=== PATIENT | female | born 1990 | race Caucasian/White ===

== ENCOUNTER 2021-11-30 09:13 | Outpatient (CLI) | payer BC, SELFPAY ==
--- NOTE | ~2021-11-30 | US_ITS ---
EXAMINATION: US OB /maternal detail EXAM DATE: 11/30/2021 10:11 INDICATION: anatomy. 2nd trimester. TECHNIQUE: Pelvic obstetrical transabdominal sonogram was performed by a technologist. There are mu ltiple grayscale and Doppler images available for interpretation. There are no earlier studies of th is gestation for comparison. FINDINGS: There is a single fetus identified in breech presentation with a heart rate of 155 beats pe r minute. The placenta is located in the anterior position, although there is some placental which ap pears to be reaching posteriorly.. Placental margin to internal cervical os distance is 3.4 cm. Cerv ical canal length is 5 cm. There is no sonographic evidence of retroplacental hemorrhage identified . There is subjectively expected amount of amniotic fluid. BIOMETRIC DATA: Biparietal diameter (BPD): 4.5 cm ----------------> 19 weeks 4 days. Head circumference (HC): 17.4 cm ----------------> 19 weeks 6 days. Abdominal circumference (AC): 15.2 cm ----------> 20 weeks 3 days. Femur length (FL): 3.3 cm --------------------------> 20 weeks 3 days. These measurements are concordant. HC/AC ratio is 1.14 (The 5th -- 95th percentile range is 1.07-1.25. Estimated weight is 346 g +/- 52 g. This is the 64th percentile when the currently reported cl inical gestation age 20 weeks 0 days, clinical estimated date of delivery (JOANIE-OPE) 04/19 is used. Fet al estimated gestational age based on measurements from this exam is 20 weeks 1 day, with an estimate d date of delivery (JOANIE-AUA) 04/18. ANATOMIC SURVEY: The following anatomy is identified and is sonographically normal in appearance: Cerebral ventricles Cavum septum pellucidum Cerebellum Cisterna magna Nuchal fold CTL-spine Four-chamber heart Cardiac outflow tracts Diaphragm Stomach Kidneys Bladder Three-vessel cord Cord insertion Extremities Nose/lips IMPRESSION: 1. Single fetus in breech presentation with heart rate 155 beats per minute. 2. Estimated weight of 346 grams, 64th percentile using the currently reported clinical gestat ion age of 20 weeks 0 days, JOANIE(OPE) 04/19. 3. Normal anatomic survey. Reviewed, dictated and finalized at location A. STMENT FUND MANAGER IMPRESSION: 1. Single fetus in breech presentation with heart rate 155 beats per minute. 2. Estimated weight of 346 grams, 64th percentile using the currently re ported clinical gestation age of 20 weeks 0 days, JOANIE(OPE) 04/19. 3. Normal anatomic survey.
== END 2021-11-30 09:14 | disposition home or self-care (01) ==
PROVIDERS: Visit Provider Student in an Organized Health Care Education/Training Program
DX: Z34.92 Encounter for supervision of normal pregnancy, unspecified, second trimester (principal); Z3A.20 20 weeks gestation of pregnancy
CPT/HCPCS: 76805

== ENCOUNTER 2022-04-14 10:03 | Outpatient (RCR) | payer BC, SELFPAY ==
[2022-04-11 14:40] VITALS: BP 116/76; PULSE 99
[2022-04-14 10:54] VITALS: BP 117/75; PULSE 101
== END 2022-05-15 10:48 | disposition home or self-care (01) ==
LOC: ANHOBOP 10:03
PROVIDERS: Visit Provider Student in an Organized Health Care Education/Training Program
DX: O99.891 Other specified diseases and conditions complicating pregnancy (principal); Z3A.38 38 weeks gestation of pregnancy; Z3A.39 39 weeks gestation of pregnancy
CPT/HCPCS: 59025

== ENCOUNTER 2022-04-15 14:44 | Inpatient (IN) | payer BC, SELFPAY ==
[2022-04-15] VITALS (101 sets, daily range): BP systolic 71–176; BP diastolic 40–139; PULSE 77–236; RESP 20; TEMP 36.4–37.4; O2SAT 94–100; BMI 37.6
--- NOTE | ~2022-04-15 | US_ITS ---
EXAMINATION: US venous doppler [facility] DATE: 04/16/2022 14:17 INDICATION: Left calf pain. TECHNIQUE: Grayscale ultrasound images without and with compression and Doppler ultrasound images of the left lower extremity veins were obtained. COMPARISON: None. FINDINGS: The visualized portions of left common femoral vein, profunda (deep) femoral vein, femoral vein, popl iteal vein, peroneal veins, posterior tibial veins, and greater saphenous vein outflow are patent. IMPRESSION: 1. No deep venous thrombosis. Reviewed, dictated and finalized at location B.
[2022-04-15] MEDS: LACTATED RINGERS 1,000 ML 125 ML IV CONT ×2 (15:27→16:30)
[2022-04-15] MEDS: fentaNYL CITRATE INJ (*CRX) 100 MCG/2 ML VIAL 50 MCG IV PUSH (15:33)
[2022-04-15 15:34] LABS: Basophils Absolute Auto 0.1 K/mm3 (0.0-0.1); Basophils Percent Auto 0.4 % (0.2-1.2); Eosinophils Absolute Auto 0.3 K/mm3 (0-0.3); Eosinophils Percent Auto 1.8 % (0-4.4); Hematocrit 36.5 % (37.0-47.0); Hemoglobin 11.6 g/dL (12.0-15.0); Immature Granulocyte Absolute 0.16 K/mm3 (0.00-0.031); Immature Granulocyte Percent A 0.9 % (0-0.5); Lymphocytes Absolute Auto 2.28 K/mm3 (0.9-3.2); Lymphocytes Percent Auto 13.3 % (18.3-44.2); Mean Corpuscular HGB Conc 31.8 g/dl (32-36); Mean Corpuscular Hemoglobin 27.6 pg (26-34); Mean Corpuscular Volume 86.7 fl (80-100); Mean Platelet Volume 10.8 fl (7.4-10.4); Monocytes Absolute Auto 1.4 K/mm3 (0.1-0.6); Monocytes Percent Auto 8.1 % (2.6-8.5); Neutrophils Absolute Auto 12.9 K/mm3 (1.3-6.7); Neutrophils Percent Auto 75.5 % (45.5-73.1); Platelet Count Result 378 k/mm3 (150-375); Red Blood Count 4.21 M/mm3 (4.2-5.4); Red Cell Distribution Width 13.4 % (11.5-14.5); White Blood Count 17.1 K/mm3 (4.5-10.0)
--- NOTE | 2022-04-15 15:41 | P.PNAN_ITS ---
Anes - Initial Pre Proc Eval Procedure: labor epidural Date/Time: 04/15/22 15:41 Surgeon: Rosendo Mccallum MD Pre Op Diagnosis: leaking Patient Data Age: 31 Gender: F Height: Weight: Last Vital Signs Pulse 101 H 04/15/22 15:32 BP 143/87 H 04/15/22 15:32 Allergies Allergy/AdvReac Type Severity Reaction Status Date / Time erythromycin base Allergy Verified 11/10/12 10:53 Home Medications Medication Instructions Recorded Confirmed Type ondansetron HCl 4 mg tablet 4 mg PO Q8H 03/22/22 03/22/22 History vit no.95-ferrous 1 tablet PO DAILY 03/22/22 03/22/22 History fumarate 28 mg-folic acid 800 mcg tablet () Laboratory Tests 04/15/22 04/15/22 15:28 15:28 WBC 17.1 K/mm3 H K/mm3 (4.5-10.0) RBC 4.21 M/mm3 M/mm3 (4.2-5.4) Hgb 11.6 g/dL L g/dL (12.0-15.0) Hct 36.5 % L % (37.0-47.0) MCV 86.7 fl fl (80-100) MCH 27.6 pg pg (26-34) MCHC 31.8 g/dl L g/dl (32-36) RDW 13.4 % % (11.5-14.5) Plt Count 378 k/mm3 H k/mm3 (150-375) MPV 10.8 fl H fl (7.4-10.4) Immature Gran % (Auto) 0.9 % H % (0-0.5) Neut % (Auto) 75.5 % H % (45.5-73.1) Lymph % (Auto) 13.3 % L % (18.3-44.2) [place] % (Auto) 8.1 % % (2.6-8.5) Eos % (Auto) 1.8 % % (0-4.4) Baso % (Auto) 0.4 % % (0.2-1.2) Lymph # (Auto) 2.28 K/mm3 K/mm3 (0.9-3.2) [place] # (Auto) 1.4 K/mm3 H K/mm3 (0.1-0.6) Eos # (Auto) 0.3 K/mm3 K/mm3 (0-0.3) Baso # (Auto) 0.1 K/mm3 K/mm3 (0.0-0.1) Abs Immat Gran (auto) 0.16 K/mm3 H K/mm3 (0.00-0.031) Absolute Neuts (auto) 12.9 K/mm3 H K/mm3 (1.3-6.7) Absolute Nucleated RBC 0.0 K/mm3 K/mm3 (0.0-0.012) Nucleated RBC % 0.0 % % (0.0-0.2) RPR Pending : gestational age (39.3) Patient hx anesthesia problems: none Family hx anesthesia problems: none Prior surgeries: none Results Review: All pre-operative results and documents have been reviewed as part of the pre- operative evaluation. [facility] Family History Family History Other No pertinent family history Social History Social History Substance use: never Spiritual care concerns: No Anes - Eval Final PreProcedure Day of Procedure 04/15/22 15:41 Results Review: All pre-operative results and documents have been reviewed as part of the pre- operative evaluation. Informed Consent: The patient's anesthetic plan and its attendant risks and benefits were discussed with the patient/family/POA. Questions were solicited and answers provided to the satisfaction of the patient/family/POA.
[2022-04-15] MEDS: PHENYLEPHRINE 1,000 MCG/10 ML SYRINGE 100 MCG IV PUSH (16:29)
[2022-04-15] MEDS: ONDANSETRON INJ 4 MG/2 ML VIAL IV PUSH (18:06)
[2022-04-15] MEDS: OXYTOCIN 30 UNITS/NS 500 ML 30 UNITS/500 ML BAG IV CONT (19:54)
--- NOTE | 2022-04-15 21:18 | WPDOBADMIT ---
Obstetrics - Admit Note Admission Note: record reviewed. Additions to the history and/or subsequent changes in the physical findings follow. 31 y/o at 39 3/7 weeks here with contractions, leakage of fluid. GBS neg. Labor diagnosed. Initially, RomPlus was negative, but she then had a gush of meconium-stained fluid and SROM was diagnosed. She received an epidural for pain control. Labor now being augmented with oxytocin. AVSS NST reactive TOCO: contractions every 2-4 min ABD soft, nontender, gravid, vertex EXT nontender Cervix C/+2 A: IUP at term with labor. Meconium. P: Anticipate .
--- NOTE | 2022-04-15 21:20 | PM.OBPRVD ---
OB - Delivery Note Procedure Delivery date: 04/15/22 Procedure: Induction method: None Delivery augmentation: Pitocin Delivery monitor: External FHT, External Uterine and Internal Uterine Route of delivery: Laceration Description: Perineal - 1st Degree Delivery repair: vicryl (3-0) Specimen: Yes (cord blood, placenta) Quantitative Blood Loss (ml): 80 Anesthesia type: Epidural Disposition: PACU Complications: None Narrative: 31 y/o at 39 3/7 weeks gestation who presented to the hospital with contractions and leakage of fluid. GBS neg. RomPlus was negative, but the cervix was 5 cm dilated. She was admitted for labor. She received an epidural for pain control. She then had SROM of meconium stained fluid. Labor was subsequently augmented with oxytocin. Her labor progressed and her cervix dilated completely. She pushed with good effort and delivered the 's head to the perineum, followed by the body. The nose and mouth were bulb suctioned. After a delay, the cord was clamped and cut. The infant was handed off the field. Cord blood was collected. The placenta delivered spontaneously and was grossly normal in appearance. The usual 3 vessel cord was noted. A shallow distal vaginal laceration was sustained. This was reapproximated using a single figure of eight suture of 3 0 Vicryl. Excellent hemostasis resulted as did excellent reapproximation of the normal anatomy. Needle and instrument counts were correct. The patient was taken to recovery room in stable condition. The infant went to the special care nursery. I was present and scrubbed for the entire delivery. Marvin Baby Date of : 04/15/22 Time of : 20:58 Weeks of gestation at delivery: 39 gender: Female Weight (pounds): 8 Weight (ounces): 15 presentation: vertex position: Right Occiput Anterior Placenta delivery description: Spontaneous and Normal Configuration Cord Vessel Description: 3 Vessels and Delayed Cord Clamping score one minute: 8 score five minutes: 9
[2022-04-15] MEDS: OXYTOCIN 30 UNITS/NS 500 ML 30 UNITS/500 ML BAG 125 UNITS IV CONT (21:29)
--- NOTE | 2022-04-15 21:29 | PM.OBDSVD ---
DS: Admitting Diagnosis Discharge Date 04/17/22 Admitting Diagnosis IUP at 39 weeks Labor DS: Discharge Diagnosis Discharge Diagnosis (1) (normal spontaneous vaginal delivery): Code(s): O80 - Encounter for full-term uncomplicated delivery Status: Acute OB - DS: Summary Hospital Course Hospital Course: 31 yo G1 who presented at 39w3d with SROM and labor. Labor progressed and she had an uncomplicated . was noted to have aspirated meconium on delivery and required antibiotics. Remainder of course was uncomplicated. OB Procedures : None OB Procedures Intrapartum: Spontaneous Vag Delivery OB Procedures: : None Time Spent with Patient Time attestation: Total time spent providing and/or coordinating discharge services: DS: Data Data Completed and Pending Labs on day of discharge: Labs from last 24 hours 04/15/22 04/15/22 04/15/22 15:28 15:28 15:28 WBC 17.1 H RBC 4.21 Hgb 11.6 L Hct 36.5 L MCV 86.7 MCH 27.6 MCHC 31.8 L RDW 13.4 Plt Count 378 H MPV 10.8 H Immature Gran % (Auto) 0.9 H Neut % (Auto) 75.5 H Lymph % (Auto) 13.3 L [place] % (Auto) 8.1 Eos % (Auto) 1.8 Baso % (Auto) 0.4 Lymph # (Auto) 2.28 [place] # (Auto) 1.4 H Eos # (Auto) 0.3 Baso # (Auto) 0.1 Abs Immat Gran (auto) 0.16 H Absolute Neuts (auto) 12.9 H Absolute Nucleated RBC 0.0 Nucleated RBC % 0.0 RPR Pending Blood Type A Positive Antibody Screen Negative Discharge Plan Discharge Discharging Clinician: Rosendo Mccallum Patient Disposition: Home, Self-Care Activity: as tolerated and pelvic rest Diet: regular Discharge Instructions: Call or return if temperature above 100.4? F, increased abdominal pain, increased vaginal bleeding or any new problems. Education: Mom and Baby Guide Given to: Mother Follow-Up: Call your delivering provider's office for an appointment to be seen in: 6 Weeks Mom and baby [facility] come [facility] for the follow-up appointment. Appointment Date/Time: April 18, 2022 at 11:00 am What to expect at your follow-up visit: Blood Pressure Check Physical Assessment Call [phone] if you are unable to keep your appointment time. BREAST CARE: * Wear a snug supportive bra. * For engorgement discomfort: Breast Feeding: * Apply warm moist washcloths * Express milk as needed to relieve engorgement * Wear loose clothing Bottle Feeding: * May apply ice packs * For sore nipples: * Identify correct latch-on * Apply warm moist washcloths before and after nursing * Air dry nipples after nursing * May apply Lansinoh cream to nipples EPISIOTOMY/PERINEAL CARE: * Until bleeding stops, use your jacob bottle after urinating * Change your pad frequently throughout the day * You may take sitz baths several times a day (fill your bathtub with warm water and soak for 20 minutes.) Do NOT bathe in the water * No tub baths until seen by your physician - You may shower ACTIVITY: * Rest as much as possible. * Do not exercise or lift anything heavier than your baby (such as laundry or other children.) * Avoid stairs or driving as much as possible. * Do not put anything into the vagina. No douching, tampons, or sexual activity until seen by physician. NOTIFY PHYSICIAN IF YOU HAVE ANY QUESTIONS OR IF ANY OF THE FOLLOWING SYMPTOMS OCCUR: * If your episiotomy or incision becomes red, swollen, or more painful than what you have experienced in the hospital. * If your vaginal bleeding becomes foul smelling. * If your vaginal bleeding becomes more heavy than a period or if your bleeding changes from pink to bright red. However, you may pass an occasional walnut-sized clot once or twice for the first week . * If you experience a sharp, shooting pain in you calves. * If you d
[2022-04-15] MEDS: IBUPROFEN 600 MG TABLET PO (21:47)
[2022-04-15] MEDS: BENZOCAINE 20% AER SPR (*SP) 56 GM CAN 1 SPRAY TOPICAL (21:48)
[2022-04-15] MEDS: WITCH HAZEL 40 PADS 1 PAD TOPICAL (21:48)
[2022-04-16 00:48] VITALS: BP 133/84; PULSE 102; RESP 18; TEMP 36.5; O2SAT 98
[2022-04-16 03:09] LABS: Hematocrit 32.5 % (37.0-47.0); Hemoglobin 10.4 g/dL (12.0-15.0)
[2022-04-16 03:17] VITALS: BP 129/83; PULSE 90; RESP 18; TEMP 36.5; O2SAT 100
[2022-04-16 07:20] VITALS: BP 130/79; PULSE 93; RESP 16; TEMP 36.6; O2SAT 100
--- NOTE | 2022-04-16 07:37 | WPDANLDPN2 ---
Anes-Prog Note L&D Date/Time: 04/16/22 07:37 Comfortable throughout: labor and delivery Neuraxial method: epidural Epidural/Spinal procedure site: clean & non-tender Neuro status: Neuro function grossly intact. Cardiovascular status: normal Respiratory status: normal Airway patency: baseline Mental status: baseline Post-Op hydration status: normal Vital Signs: Last Vital Signs Temp 36.5 C 04/16/22 03:17 Pulse 90 04/16/22 03:17 Resp 18 04/16/22 03:17 BP 129/83 04/16/22 03:17 Pulse Ox 100 04/16/22 03:17 O2 Del Method Room Air 04/16/22 00:48 Pain score (VAS): 2 I/O: Intake & Output 04/15/22 04/15/22 04/16/22 15:59 23:59 07:59 Intake Total 1100 Output Total 80 143 Balance 1020 -143 Post-procedural complaints: none Patient feedback: Patient satisfied with anesthetic care.
[2022-04-16 09:11] LABS: Rapid Plasma Reagin Non-Reactive (NonReactive)
[2022-04-16 12:20] VITALS: BP 128/77; PULSE 98; RESP 16; TEMP 37.3; O2SAT 96
--- NOTE | 2022-04-16 12:57 | P.PNOB_ITS ---
OB - PN: Subj Subjective Date/time seen: 04/16/22 12:57 Narrative: Pain OK. Has tightness and a little pain in the left calf, especially when she straightens the leg and flexes the foot. No chest pain or shortness of breath. OB - PN: Obj Data Labs CBC & Chem 7: 04/16/22 02:55 Labs: Laboratory Results - last 24 hr 04/15/22 04/15/22 04/15/22 15:28 15:28 15:28 WBC 17.1 H RBC 4.21 Hgb 11.6 L Hct 36.5 L MCV 86.7 MCH 27.6 MCHC 31.8 L RDW 13.4 Plt Count 378 H MPV 10.8 H Immature Gran % (Auto) 0.9 H Neut % (Auto) 75.5 H Lymph % (Auto) 13.3 L [place] % (Auto) 8.1 Eos % (Auto) 1.8 Baso % (Auto) 0.4 Lymph # (Auto) 2.28 [place] # (Auto) 1.4 H Eos # (Auto) 0.3 Baso # (Auto) 0.1 Abs Immat Gran (auto) 0.16 H Absolute Neuts (auto) 12.9 H Absolute Nucleated RBC 0.0 Nucleated RBC % 0.0 RPR Non-reactive Blood Type A Positive Antibody Screen Negative 04/16/22 02:55 WBC RBC Hgb 10.4 L Hct 32.5 L MCV MCH MCHC RDW Plt Count MPV Immature Gran % (Auto) Neut % (Auto) Lymph % (Auto) [place] % (Auto) Eos % (Auto) Baso % (Auto) Lymph # (Auto) [place] # (Auto) Eos # (Auto) Baso # (Auto) Abs Immat Gran (auto) Absolute Neuts (auto) Absolute Nucleated RBC Nucleated RBC % RPR Blood Type Antibody Screen OB - PN A/P Plan Comments: A: PPD#1, doing well. Left calf pain. P: Check left lower extremity venous doppler flow study. Exam Psych: Other: AVSS ABD soft, nontender, fundus firm EXT nontender, 1+ edema symmetric in legs
[2022-04-16] MEDS: IBUPROFEN 600 MG TABLET PO ×2 (14:24→20:27)
--- NOTE | 2022-04-16 15:46 | PC.NURSE ---
[id number] Introductions were made, then consulted with patient to assess needs related to . Mother led the conversation with her experience feeding her so far. Mother works well with her with encouragement and education. Visualization of multiple small bruises on mother's areola were seen. Mother states she plans to breastfeed but desires to pump and feed as well. Encouraged understanding of the benefits of skin to skin (unwrapping and placing vertically on her chest), responsive feeding and how to watch for early feeding signs, frequency of feeding on demand about every 8-12 times in 24 hours (every 2-3 hours), milk production, duration of feeding, signs of adequate intake/output and how to record on the feeding sheet. Reviewed positioning and ear, shoulder, hip alignment, supporting the breast, asymmetrical latch (off-center), and leading with the chin with a big open side gape. Mother is concerned that infant has not been latching with big open wide gape. Resources used to facilitate learning were used with the visual handouts/ tool/mom and baby guide. Infant is sleepy and reluctant to breastfeed. Blood sugar was 72 before attempt. Infant placed skin to skin and mother voiced understanding of stimulating infant and calling for assistance. Mother voiced understanding of responsive feedings, stimulating with skin to skin, hand expressed colostrum, touch, talking to infant to encourage if it has been 2 -3 hours since the start of the last , to call if infant does not latch or there is discomfort with . Reported to the primary RN. 1100 - remains reluctant, gassy and behaves gaggy . Mother demonstrates understanding of hand expression and collects 5 mls and RN spoon feeds infant. Discussed risk and benefits of hand expressing and pumping if infant doesn't latch well. Mother voiced understanding of education. Reported to primary RN.
[2022-04-16 16:30] VITALS: BP 120/76; PULSE 90; RESP 16; RESP 18; TEMP 36.7; O2SAT 97
[2022-04-16 19:20] VITALS: BP 124/77; PULSE 88; RESP 18; TEMP 37
[2022-04-17] MEDS: IBUPROFEN 600 MG TABLET PO (08:12)
[2022-04-17] MEDS: MULTIVIT/MIN/PREN/FOL AC/IRON TABLET 1 TAB PO (08:12)
[2022-04-17 08:15] VITALS: BP 126/78; PULSE 101; RESP 18; TEMP 37; O2SAT 97
--- NOTE | 2022-04-17 09:00 | PM.OBDSVD ---
DS: Admitting Diagnosis Discharge Date 04/17/22 Admitting Diagnosis intrauterine at term OB - DS: Summary Hospital Course Hospital Course: 31 yo G1 who presented at 39w3d with SROM and labor. Labor progressed and she had an uncomplicated . was noted to have aspirated meconium on delivery and required antibiotics. Remainder of course was uncomplicated. OB Procedures : None OB Procedures Intrapartum: Spontaneous Vag Delivery OB Procedures: : None Status at Discharge Functional status at discharge: independent ambulation Overall status at discharge: patient is back to baseline Time Spent with Patient Time attestation: Total time spent providing and/or coordinating discharge services: Time spent: Less than 30 minutes Exam Const: General: comfortable and no acute distress Resp: Effort & Inspection: normal respiratory effort Auscultation: clear to auscultation bilaterally Cardio: Rate: regular rate GI: GI Palp: Yes Soft to palpation Auscultation: normal bowel sounds Other: Fundus firm below umbilicus Psych: Appearance: grossly normal Mental Status: mental status grossly normal Affect: normal affect DS: Data Data Completed and Pending Pending studies at discharge: Pending at discharge 04/16/22 08:07 Surgical [PTH] Routine Labs on day of discharge: Labs from last 24 hours 04/15/22 15:28 RPR Non-reactive Discharge Plan Discharge Discharging Clinician: Rosendo Mccallum Patient Disposition: Home, Self-Care Activity: as tolerated and pelvic rest Diet: regular Discharge Instructions: Call or return if temperature above 100.4? F, increased abdominal pain, increased vaginal bleeding or any new problems. Stand Alone Forms: General Discharge Information Follow-up/Referrals: Rosendo Mccallum MD [Physician] - 6 Weeks Discharge Medications: New acetaminophen [Mapap (acetaminophen)] 325 mg Tablet 650 mg PO Q6H PRN (Reason: Mild Pain (1-3) Or Headache) Qty: 30 0RF ibuprofen 600 mg Tablet 600 mg PO Q6H PRN (Reason: Cramping) Qty: 30 0RF ibuprofen 600 mg tablet 600 mg PO Q6H PRN (Reason: cramps) Qty: 30 0RF Continued ondansetron HCl [Zofran] 4 mg Tablet 4 mg PO Q8H PNV cmb#95-ferrous fumarate-FA [] 28 mg iron- 800 mcg Tablet 1 tablet PO DAILY Date of admission: 04/15/22 14:44 Primary Care Provider: PHYSICIAN,RISK CONTROL ANALYST Admitting Provider: Rosendo Mccallum Attending physician on admission: Rosendo Mccallum Condition: Stable
--- NOTE | 2022-04-17 15:03 | PC.NURSE ---
[id number] Consulted with patient to assess needs related to . Mother led conversation with her experience with feeding baby so far. Mother is eating now. Father of baby is holding infant. Plan of care discussed and mother voiced calling for assistance with the next feeding. [phone] Reviewed working with , breast, nipples and how to protect the nipples with an optimal deep latch, good positioning, and good hand washing. Encouraged understanding the benefits of skin to skin, responding to feeding cues, frequencies of feeding 8-12 times in 24 hours (approximately 2-3 hours), duration of feedings, milk production, intake/output feeding sheet and signs of adequate intake encouraging swallowing at the breast. Reviewed positioning and alignment, supporting breast, off-centered (asymmetrical latch) and leading with the chin with big open wide gape. Infant attempts to breastfeed, doesn't latch and is fussy. 2mls of pumped human milk was syringe fed to while sucking on a gloved finger. latched to the right breast optimally with a cross cradle position and breastfed effectively for 5 min. Mother was encouraged to continue to work with on latching well. Mother led the conversation with her experience and plan to feed her infant so far and her ability to continue with the plan of attempting to breastfeed/pump/supplement with her human milk to feed infant. Reminded parents to use good handwashing technique to prevent infection. Mother is feeding appropriately for growth of and understands stimulating infant to eat if needed. has had [appropriate feedings in the last 24 hours meets the outcomes for weight, output and jaundice at this time. Mother states she is confident to continue effectively /pumping/supplementing her infant or when to call for assistance and denies any additional assistance or education at this time. Reinforced understanding of milk production, transition of milk, signs of adequate intake, prevention/relief of engorgement, responsive after visualizing feeding cues, the different methods of stimulating infant to breastfeed 2-3 hours after the start of the last feeding, community resources, medication information reviewed per [employer] and when to call a provider using the resource of the mom and baby guide/[facility] website. Mother voiced understanding of the education shared. Reported to the primary RN. [id number] - Mother initiated pumping to be able to feed infant more colostrum. Mother voiced that she was confident to syringe feed infant colostrum that she pumps and will call out for assistance with latch, syringe feeding or as needed.
[2022-04-19 08:52] VITALS: BP 125/78; PULSE 90; RESP 20; TEMP 36.9; O2SAT 97
== END 2022-04-17 17:35 | disposition home or self-care (01) | DRG 805 ==
LOC: ANHLDR 21:33 → ANHOB2 04-16 00:34
PROVIDERS: Admitting Provider Obstetrics & Gynecology; Visit Provider Student in an Organized Health Care Education/Training Program
DX: O77.0 Labor and delivery complicated by meconium in amniotic fluid (principal); K83.1 Obstruction of bile duct; Z37.0 Single live birth; O26.62 Liver and biliary tract disorders in childbirth; O70.0 First degree perineal laceration during delivery; M79.662 Pain in left lower leg; Z3A.39 39 weeks gestation of pregnancy
CPT/HCPCS: 36415; 84112; 85014; 85018; 85025; 86592; 86850; 86900; 86901; 88307; 93971; A9270; J0131; J2370; J2405; J2590; J2795; J3010; J7120

== ENCOUNTER 2024-09-29 11:18 | Emergency (ER) | payer BC, SELFPAY ==
[2024-09-29 11:27] VITALS: BP 130/79; PULSE 81; RESP 20; TEMP 36.5; O2SAT 99
--- NOTE | 2024-09-29 11:45 | ED.URI ---
HPI - URI/Sore Throat General Chief Complaint: Ear Stated Complaint: EARACHE/L SIDED THROAT PAIN Time Seen by Provider: 09/29/24 11:40 Source: patient, RN notes reviewed and old records reviewed Mode of arrival: ambulatory Limitations: no limitations History of Present Illness HPI Narrative: 34 year old female who presents to [facility] care with complaints of left ear and left side of her throat pain for the past 2-3 days. Patient reports that she has not had a fever.Patient reports that she had some nasal congestion and drainage then her throat hurt on the left side then moved to her left ear with pressure and discomfort. MD elicited complaint: sore throat (left sided) and other (left ear pain) Onset (ago): day(s) (2-3 days) Pain scale (0-10): 4 Able to tolerate fluids by mouth: Yes Treatments prior to arrival: ibuprofen Related Data Home Medications Medication Instructions Recorded Confirmed venlafaxine 37.5 mg 37.5 mg PO DAILY 12/17/22 12/17/22 capsule,extended release 24 hr Allergies Allergy/AdvReac Type Severity Reaction Status Date / Time erythromycin base Allergy Unknown Verified 12/17/22 08:21 Review of Systems Review of Systems: CONSTITUTIONAL: Denies malaise, chills, sweats, or fever. EYES: Denies visual changes, redness, or discharge. ENT: Reports rhinorrhea, congestion, sinus pain, left otalgia and sore throat. CARDIOVASCULAR: Denies chest pain, palpitations, or edema. RESPIRATORY: Reports no cough.? Denies dyspnea. GASTROINTESTINAL: Denies abdominal pain, nausea, vomiting, diarrhea SKIN: Denies rash or itching. MUSCULOSKELETAL: Denies myalgia. NEUROLOGIC: Denies headache. All systems reviewed & are unremarkable except as noted in HPI and below PMFSH Past Medical History Medical History Post depression Surgical History Surgical History H/O dilation and curettage Family History Family History Other No pertinent family history Social History Social History Smoking status: Never smoker Alcohol intake: current Alcohol use details: occasionally Substance use: never Spiritual care concerns: No Comments At time of signature, agree with nursing past medical, surgical, social and family history. There is no relevant family history pertinent to the presenting complaint Exam Narrative: GENERAL: Well-appearing, well-nourished, and in no acute distress. HEAD: Normocephalic EYES: PERRLA, conjunctivae clear ENT: Nares clear, turbinates edematous and erythematous, clear discharge. Mucous membranes moist.Left TM red with ear canal also red and swollen,Right TM pearly martin with dull light reflex; left tragal tenderness. Oropharynx erythematous without lesions. Tonsils not enlarged and without exudate, no drooling, no hoarseness, no trismus, uvula midline. NECK: Supple. No lymphadenopathy CHEST: Clear to auscultation, breath sounds equal. No wheezing, rhonchi, rales, or stridor. No respiratory distress, speaks in full sentences.SAO2 99% on room air HEART: Regular rate and rhythm. No murmur heard. SKIN: Warm, dry, no rash. NEURO: Alert and oriented x3. PSYCH: Normal mood and affect Course Course Emergency Course: Patient is aware of diagnosis, understands and agrees to treatment plan.? Anticipatory guidance given.? Patient agrees to follow-up as directed and is aware of reasons to seek care at the emergency department. Portions of this record may have been created with voice recognition software Level of Care: Express Care Visit Vital Signs Vital signs: Vital Signs Temperature 36.5 C 09/29/24 11:27 Pulse Rate 81 09/29/24 11:27 Respiratory Rate 20 09/29/24 11:27 Blood Pressure 130/79 09/29/24 11:27 Pulse Oximetry 99 09/29/24 11:27 Oxygen Delivery Room Air 09/29/24 11:27 Temperature 36.5 C 09/29/24 11:27 Pulse Rate 81 09/29/24 11:27 Respiratory Rate 20 09/29/24 11:27 Blood Pressure 130/79 09/29/24 11:27 Pulse Oximetry 99 09/29/24 11:27 Oxygen Delivery Room Air 09/29/24 11:27 Reviewed MDM - URI/Sore Throat MDM Narrative Medical decision making narrative: Differential diagnosis considered: Diaz virus, strep pharyngitis, allergic rhinitis, upper respiratory tract infection, sinusitis, rhinosinusitis, nasopharyngitis. viral pharyngitis, otitis media, otitis externa, pneumonia, bronchitis, viral cough syndrome, viral syndrome, and influenza.? Exam findings show no acute concerns or changes; patient is non-toxic appearing and is in no distress.? Patient is appropriate for outpatient treatment and follow-up. Differential Diagnosis Differential diagnosis: Likely upper respiratory infection, otitis media, pharyngitis and other (otitis externa) Medical Records Attestation: I reviewed the patient's medical records. Lab Data Attestation: I reviewed the patient's lab results. Critical Care Time Critical Care Time Critical Care Time: No Discharge Plan Discharge Clinical Impression: Left acute otitis media Left otitis externa Qualifiers: Otitis externa type: unspecified type Chronicity: acute Qualified Code(s): H60.502 - Unspecified acute noninfective otitis externa, left ear Patient Disposition: Home, Self-Care Condition: Stable Instructions: Antibiotic Form, Swimmer's Ear (GEN), Ear Infection (GEN) Additional Instructions: Increase fluids especially juices and water [id number] cough and cold medicine of your choice for your symptoms Tylenol or Ibuprofen for any fever or pain Zyrtec,Claritin or Michelle daily heat to the face 20-30 minutes 4-6 times a day for pain Salt water gargles, throat lozenges or throat sprays as desired Antibiotic as directed--finished the medication If your symptoms persist, change or worsen significantly before you can contact your personal physician then please, without delay, go to the emergency department for further evaluation. Follow-up with PCP in 7-10 days or sooner if needed Follow up with PCP soon in regards to your blood pressure which is elevated above threshold for referral. Blood pressure above 120/80 may indicate pre-hypertension.130/79 Prescriptions: New amoxicillin-pot clavulanate 875-125 mg tablet 1 tablet PO Q12H Qty: 20 0RF Rx Instructions: take probiotic or eat activia yogurt while on this medication ofloxacin 0.3 % drops 5 drp EACH EAR BID 10 Days Qty: 10 0RF Rx Instructions: left ear No Action venlafaxine 37.5 mg capsule,extended release 24hr 37.5 mg PO DAILY levothyroxine 50 mcg tablet 50 mcg PO DAILY Qty: 90 1RF Follow-up/Referrals: PHYSICIAN,VEGETABLE LOADER MACHINE OPERATOR [Primary Care Provider] - Time of Disposition: 12:00 Quality [place] Coma Scale Eyes: Open Verbal: Oriented and Alert Motor: Follows Commands Jossie Coma Total Score: 15
== END 2024-09-29 12:00 | disposition home or self-care (01) ==
PROVIDERS: Emergency Provider Registered Nurse
DX: H60.502 Unspecified acute noninfective otitis externa, left ear (principal); H66.92 Otitis media, unspecified, left ear
CPT/HCPCS: 99213; G0463